=== PATIENT | male | born 1965 | race Two or more races ===

== ENCOUNTER → 2025-02-21 | Outpatient (CLI) | payer MEDICAID, SELFPAY ==
--- NOTE | 2025-02-21 09:57 | XR_ITS ---
Examination: Ribs, right, with PA chest, 4 views Technique: Chest PA, RIBS AP, RPO, LPO, 4 views Exam date and time: February 21, 2025 1029 hours INDICATIONS: Right-sided rib pain after falling 5 days ago Findings: Normal heart size No pneumothorax Cardiac lead satisfactory position Suspicious for nondisplaced fractures right fifth and sixth ribs anteriorly IMPRESSION: No pneumothorax Suspicious for nondisplaced fractures anterior right fifth and sixth ribs
--- NOTE | 2025-02-21 09:57 | XR_ITS ---
Examination: PA lateral chest 2 views TECHNIQUE: Upright PA lateral chest 2 views Exam date and time: February 21, 2025 1035 hours INDICATIONS: Right-sided rib pain after falling 5 days ago. FINDINGS: Normal heart size Ventricular cardiac lead satisfactory position. No pneumothorax Please see the right rib series report IMPRESSION: No pneumothorax pulmonary contusion or hemothorax
== END | disposition home or self-care (01) ==
DX: S20.211A Contusion of right front wall of thorax, initial encounter (principal); W19.XXXA Unspecified fall, initial encounter
CPT/HCPCS: 71046; 71101